=== PATIENT | male | born 2000 | race Hispanic/Latino ===

== ENCOUNTER 2019-10-09 10:24 | Emergency (ER) | payer BC ==
[~2019-10-09] VITALS: Ht 172.7 cm; Wt 68.0 kg
--- OUTSIDE RECORDS SUMMARY | 2019-10-09 10:28 | XMS REPORT ---
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 Allergies, Adverse Reactions, Alerts Allergy Name Allergy Type Status Severity Reaction(s) Onset Date Inactive Date Treating Clinician Comments No Known Allergies DA Active U 2011-05-04 00:00:00 Medications This patient has no known medications.
== END 2019-10-09 11:25 | disposition home or self-care (01) ==
LOC: ER 10:24
DX: L29.9 Pruritus, unspecified (principal); J30.1 Allergic rhinitis due to pollen
CPT/HCPCS: 99282